=== PATIENT | female | born 1945 | race Caucasian/White ===

== ENCOUNTER 2016-10-18 12:56 | Outpatient (CLI) | payer MEDICARE, OTHER ==
[~2016-10-18] VITALS: Ht 147.3 cm; Wt 67.8 kg
[2016-10-18] MEDS ORDERED: SPIR25TA3 PO (13:11)
[2016-10-18] MEDS ORDERED: SIMV40TA4 PO (13:11)
[2016-10-18] MEDS ORDERED: GABA-486 PO (13:11)
[2016-10-18] MEDS ORDERED: PANT40TA3 PO (13:11)
[2016-10-18] MEDS ORDERED: DILT240C87 PO (13:11)
[2016-10-18] MEDS ORDERED: ASPI-586 PO (13:15)
[2016-10-18 13:21] VITALS: BP 141/71
[2016-10-18 13:55] LABS: BASOPHILS % (AUTO) 1 % (0-10); EOSINOPHILS # (AUTO) 0.2 10^3/uL (0.0-0.3); EOSINOPHILS % (AUTO) 2 % (0-10); LYMPHOCYTES # (AUTO) 1.6 X 10^3 (1.0-4.0); LYMPHOCYTES % (AUTO) 18 % (12-44); MEAN CORPUSCULAR HEMOGLOBIN 29 PG (25-34); MEAN CORPUSCULAR HGB CONC 34 G/DL (32-36); MEAN CORPUSCULAR VOLUME 85 FL (80-99); MEAN PLATELET VOLUME 9.7 FL (7.4-10.4); MONOCYTES # (AUTO) 0.8 X 10^3 (0.0-1.0); MONOCYTES % (AUTO) 9 % (0-12); NEUTROPHILS % (AUTO) 70 % (42-75); PLATELET COUNT 367 10^3/uL (130-400); RED CELL DISTRIBUTION WIDTH 12.6 % (10.0-14.5); WHITE BLOOD COUNT 8.5 10^3/uL (4.3-11.0)
[2016-10-18 14:23] LABS: ANION GAP 14 MMOL/L (5-14); BLOOD UREA NITROGEN 13 MG/DL (7-18); BUN/CREATININE RATIO 17; CALCIUM 10.1 MG/DL (8.5-10.1); CARBON DIOXIDE 21 MMOL/L (21-32); CHLORIDE 100 MMOL/L (98-107); CREATININE SERUM 0.76 MG/DL (0.60-1.30); GFR ESTIMATED > 60; GLUCOSE 85 MG/DL (70-105); POTASSIUM 4.2 MMOL/L (3.6-5.0); SODIUM 135 MMOL/L (135-145)
== END 2016-10-18 15:32 | disposition home or self-care (01) ==
LOC: PREOP 12:56
PROVIDERS: ATTEND Otolaryngology Otolaryngology/Facial Plastic Surgery
DX: Z01.812 Encounter for preprocedural laboratory examination (principal); Z11.2 Encounter for screening for other bacterial diseases; J34.9 Unspecified disorder of nose and nasal sinuses
CPT/HCPCS: 36415; 80048; 85025; 87081; 93005

== ENCOUNTER 2016-11-22 05:36 | Outpatient (CLI) | payer MEDICARE, OTHER ==
[~2016-11-22] VITALS: Ht 147.3 cm; Wt 67.8 kg
[~2016-11-22 05:36] MED LIST: ASPI-586 PO; DILT240C87 PO; GABA-486 PO; PANT40TA3 PO; SIMV40TA4 PO; SPIR25TA3 PO
--- OUTSIDE RECORDS SUMMARY | 2016-11-22 05:40 | XMS REPORT | Continuity of Care Document ---
Author Author [facility] Organization [facility] Address Unknown Phone Unavailable Support Name Relationship Address Phone SEVERO ELDRIDGE MD Caregiver [address]ait [address], [address] [place] [address] ESTER CLAY Next Of Kin [address] [place] [address] Insurance Providers Payer Name Policy Number Subscriber Name Relationship [employer] Medicare [id number] Lucille Clay 18 Self / Same As Patient Comm Crossover Enter Ins Name [id number] Lucille Clay 18 Self / Same As Patient Advance Directives Directive Response Recorded Date/Time Advance Directives Yes 10/18/16 1:06pm Health Care Power of Gear Shaper Set Up Operator Yes 10/18/16 1:06pm Resuscitation Status Full Code 10/18/16 1:06pm Problems No problem information available. Medications Current Home Medications Medication Dose Units Route Directions Days/Qty Instructions Start Date Diltiazem Hcl 240 Mg 240 Mg Oral Daily 10/18/16 Spironolactone 25 Mg 25 Mg Oral Daily 10/18/16 Simvastatin 40 Mg 40 Mg Oral Daily 10/18/16 Gabapentin 100 Mg 100 Mg Oral Daily 10/18/16 Pantoprazole Sodium 40 Mg 40 Mg Oral Daily 10/18/16 Aspirin 81 Mg 81 Mg Oral Daily 10/18/16 Social History Social History Problem Response Recorded Date/Time Alcohol Use Denies Use 10/18/2016 1:06pm Recreational Drug Use No 10/18/2016 1:06pm Recent Foreign Travel No 10/18/2016 1:05pm Recent Infectious Disease Exposure No 10/18/2016 1:05pm Sexually Transmitted Disease No 10/18/2016 1:06pm HIV/AIDS No 10/18/2016 1:06pm Smoking Status Former Smoker 10/18/2016 1:06pm Recent Hopitalizations No 10/18/2016 1:06pm Sexually Transmitted Disease No 10/18/2016 1:06pm Query Response Start Date Stop Date Smoking Status Former Smoker Hospital Discharge Instructions No hospital discharge instructions. Plan of Care Discharge Date 10/18/16 3:32pm Prescriptions See Medication Section Functional Status No functional status results. Allergies, Adverse Reactions, Alerts Allergen Type Severity Reaction Status Last Updated azithromycin ([id number]) Allergy Severe SEVERE GI UPSET/HOSPITALIZATION Active 10/18/16 Immunizations No immunization records. Vital Signs Acute Vital Signs Vital Response Date/Time Pulse Rate (adult) 75 bpm (60 - 90) 10/18/2016 1:21pm Respiratory Rate 16 bpm (12 - 24) 10/18/2016 1:21pm O2 Sat by Pulse Oximetry 97 % (88 - 100) 10/18/2016 1:21pm Blood Pressure 141/71 mm Hg 10/18/2016 1:21pm Blood Pressure Mean 94 mm Hg 10/18/2016 1:21pm Pain Numeric Pain Scale 0-No Pain 10/18/2016 1:21pm Height (Feet) 4 feet 10/18/2016 1:00pm Height (Inches) 10.00 inches 10/18/2016 1:00pm Height (Calculated Centimeters) 147.535696 cm 10/18/2016 1:00pm Weight (Pounds) 149 pounds 10/18/2016 1:00pm Weight (Ounces) 6.0 oz 10/18/2016 1:00pm Weight (Calculated Grams) 76117.36 gm 10/18/2016 1:00pm Weight (Calculated Kilograms) 67.535072 kilograms 10/18/2016 1:00pm Calculated BMI 31.2 10/18/2016 1:00pm Results Laboratory Results Test Name Result Units Flags Reference Collection Date/Time Result Date/ Time Comments White Blood Count 8.5 10^3/uL 4.3-11.0 10/18/2016 1:40pm 10/18/2016 1: 55pm Red Blood Count 5.00 10^6/uL 4.35-5.85 10/18/2016 1:40pm 10/18/2016 1: 55pm Hemoglobin 14.5 G/DL 11.5-16.0 10/18/2016 1:40pm 10/18/2016 1:55pm Hematocrit 43 % 35-52 10/18/2016 1:40pm 10/18/2016 1:55pm Mean Corpuscular Volume 85 FL 80-99 10/18/2016 1:40pm 10/18/2016 1: 55pm Mean Corpuscular Hemoglobin 29 PG 25-34 10/18/2016 1:40pm 10/18/2016 1: 55pm Mean Corpuscular Hemoglobin Concent 34 G/DL 32-36 10/18/2016 1:40pm 12/2016 1:55pm Red Cell Distribution Width 12.6 % 10.0-14.5 10/18/2016 1:40pm 2016 1:55pm Platelet Count 367 10^3/uL 130-400 10/18/2016 1:40pm 10/18/2016 1:55pm Mean Platelet Volume 9.7 FL 7.4-10.4 10/18/2016 1:40pm 10/18/2016 1: 55pm Neutrophils (%) (Auto) 70 % 42-75 10/18/2016 1:40pm 10/18/2016 1:55pm Lymphocytes (%) (Auto) 18 % 12-44 10/18/2016 1:40pm 10/18/2016 1:55pm Monocytes (%) (Auto) 9 % 0-12 10/18/2016 1:40pm 10/18/2016 1:55pm Eosinophils (%) (Auto) 2 % 0-10 10/18/2016 1:40pm 10/18/2016 1:55pm Basophils (%) (Auto) 1 % 0-10 10/18/2016 1:40pm 10/18/2016 1:55pm Neutrophils # (Auto) 6.0 X 10^3 1.8-7.8 10/18/2016 1:40pm 10/18/2016 1: 55pm Lymphocytes # (Auto) 1.6 X 10^3 1.0-4.0 10/18/2016 1:40pm 10/18/2016 1: 55pm Monocytes # (Auto) 0.8 X 10^3 0.0-1.0 10/18/2016 1:40pm 10/18/2016 1: 55pm Eosinophils # (Auto) 0.2 10^3/uL 0.0-0.3 10/18/2016 1:40pm 10/18/2016 1 :55pm Basophils # (Auto) 0.0 10^3/uL 0.0-0.1 10/18/2016 1:40pm 10/18/2016 1: 55pm Sodium Level 135 MMOL/L 135-145 10/18/2016 1:45pm 10/18/2016 2:25pm Potassium Level 4.2 MMOL/L 3.6-5.0 10/18/2016 1:45pm 10/18/2016 2:25pm Chloride Level 100 MMOL/L 98-107 10/18/2016 1:45pm 10/18/2016 2:25pm Carbon Dioxide Level 21 MMOL/L 21-32 10/18/2016 1:45pm 10/18/2016 2: 25pm Anion Gap 14 MMOL/L 5-14 10/18/2016 1:45pm 10/18/2016 2:25pm Blood Urea Nitrogen 13 MG/DL 7-18 10/18/2016 1:45pm 10/18/2016 2:25pm Creatinine 0.76 MG/DL 0.60-1.30 10/18/2016 1:45pm 10/18/2016 2:25pm BUN/Creatinine Ratio 17 10/18/2016 1:45pm 10/18/2016 2:25pm Estimat Glomerular Filtration Rate > 60 10/18/2016 1:45pm 2016 2:25pm GFR INTERPRETIVE DATA UNITS FOR ESTIMATED GFR (eGFR): mL/min/1.73 M2 REFERENCE RANGE FOR ESTIMATED GFR (eGFR) eGFR NORMAL eGFR >60 MODERATELY DECREASED eGFR 30-59 SEVERLY DECREASED eGFR 15-29 KIDNEY FAILURE <15 (OR DIALYSIS) Glucose Level 85 MG/DL 70-105 10/18/2016 1:45pm 10/18/2016 2:25pm Calcium Level 10.1 MG/DL 8.5-10.1 10/18/2016 1:45pm 10/18/2016 2:25pm Procedures Procedure Status Date Provider(s) Tracing only of electrocardiogram Active 10/18/16 SEVERO ELDRIDGE MD Encounters Encounter Location Arrival/Admit Date Discharge/Depart Date Attending Provider Departed Clinic [facility] 10/18/16 12:56pm 10/18/16 3: 32pm SEVERO ELDRIDGE MD
== END 2016-11-22 10:45 ==
LOC: PREOP 05:36
PROVIDERS: ATTEND Otolaryngology Otolaryngology/Facial Plastic Surgery
DX: Z01.818 Encounter for other preprocedural examination (principal); J34.89 Other specified disorders of nose and nasal sinuses

== ENCOUNTER 2016-11-25 08:41 | Day surgery (SDC) | payer MEDICARE, OTHER ==
[~2016-11-25] VITALS: Ht 147.3 cm; Wt 67.8 kg
--- OUTSIDE RECORDS SUMMARY | 2016-11-25 08:44 | XMS REPORT | Continuity of Care Document ---
Author Author [facility] Organization [facility] Address Unknown Phone Unavailable Support Name Relationship Address Phone SEVERO ELDRIDGE MD Caregiver Cait [address], [address] [place] [address] ESTER CLAY Next Of Kin [address] [place] [address] Insurance Providers Payer Name Policy Number Subscriber Name Relationship Wps Medicare [id number] Lucille Clay 18 Self / Same As Patient Comm Crossover Enter Ins Name [id number] Lucille Clay 19 Self / Same As Patient Advance Directives Directive Response Recorded Date/Time Advance Directives Yes 10/18/16 1:06pm Health Care Power of Oracle Specialist Yes 10/18/16 1:06pm Resuscitation Status Full Code [...] Type Severity Reaction Status Last Updated azithromycin ([id number]) Allergy Severe SEVERE GI UPSET/HOSPITALIZATION Active 10/18/16 [...] 10.00 inches 10/18/2016 1:00pm Height (Calculated Centimeters) 147.519632 cm 10/18/2016 1:00pm Weight (Pounds) 149 pounds 10/18/2016 1:00pm Weight (Ounces) 6.0 oz 10/18/2016 1:00pm Weight (Calculated Grams) 08604.36 gm 10/18/2016 1:00pm Weight (Calculated Kilograms) 67.474993 kilograms 10/18/2016 1:00pm Calculated BMI 31.2 10/18/2016 [...] Discharge/Depart Date Attending Provider Departed Clinic [facility] 10/18/16 12:56pm 10/18/16 3: 32pm SEVERO ELDRIDGE MD
--- OUTSIDE RECORDS SUMMARY | 2016-11-25 08:45 | XMS REPORT | Continuity of Care Document ---
Author Author [facility] Organization [facility] Address Unknown Phone Unavailable Support Name Relationship Address Phone SEVERO ELDRIDGE MD Caregiver Cait [address], [address] [place] [address] ESTER CLAY Next Of Kin [address] [place] [address] Insurance Providers Payer Name Policy Number Subscriber Name Relationship Wps Medicare [id number] Lucille Clay 18 Self / Same As Patient Comm Crossover Enter Ins Name [id number] Lucille Clay 19 Self / Same As Patient Advance Directives Directive Response Recorded Date/Time Advance Directives Yes 10/18/16 1:06pm Health Care Power of Edge Finisher Yes 10/18/16 1:06pm Resuscitation Status Full Code [...] Type Severity Reaction Status Last Updated azithromycin ([id number]) Allergy Severe SEVERE GI UPSET/HOSPITALIZATION Active 10/18/16 [...] 10.00 inches 10/18/2016 1:00pm Height (Calculated Centimeters) 147.566720 cm 10/18/2016 1:00pm Weight (Pounds) 149 pounds 10/18/2016 1:00pm Weight (Ounces) 6.0 oz 10/18/2016 1:00pm Weight (Calculated Grams) 17962.36 gm 10/18/2016 1:00pm Weight (Calculated Kilograms) 67.762028 kilograms 10/18/2016 1:00pm Calculated BMI 31.2 10/18/2016 [...] Discharge/Depart Date Attending Provider Departed Clinic [facility] 10/18/16 12:56pm 10/18/16 3: 32pm SEVERO ELDRIDGE MD
[2016-11-25] MEDS ORDERED: FAMOTIDINE 20MG/2ML IV (PEPCID) IV ONE (09:30)
[2016-11-25] MEDS: LACTATED RINGERS 1,000 ML IV PRN ×2 (09:33→11:45)
[2016-11-25 10:09] VITALS: BP 173/75
[2016-11-25] MEDS ORDERED: LIDOCAINE PF 2% 10 ML (XYLOCAINE) AMP ONE (10:12)
[2016-11-25] MEDS ORDERED: proPOfol 200 MG/20 ML (DIPRIVAN) VIAL IV ONE (10:12)
[2016-11-25] MEDS ORDERED: ONDANSETRON 4 MG/2 ML (SDV) Z0FRAN ONE (10:13)
[2016-11-25] MEDS ORDERED: MIDAZOLAM 2 MG/2 ML (VERSED) VIAL ONE (10:13)
[2016-11-25] MEDS ORDERED: DEXAMETHASONE PF 10 MG/ML (DECADRON) VIAL ONE (10:13)
[2016-11-25] MEDS ORDERED: fentaNYL INJECTION 100 MCG/2 ML AMP ONE (10:13)
[2016-11-25] MEDS ORDERED: MUPIROCIN 2% OINT 22 GM (BACTROBAN) TUBE ONE (10:54)
[2016-11-25] MEDS ORDERED: LIDOCAINE/EPI 1%-1:100,000 (XYLOCAINE) 20ML ONE (10:54)
--- NOTE | 2016-11-25 11:36 | Progress Note-Pre Operative ---
Pre-Operative Progress Note H&P Reviewed The H&P was reviewed, patient examined and no changes noted. Date H&P Reviewed: Nov 25, 2016 Time H&P Reviewed: 10:00 Pre-Operative Diagnosis: Right Nasal Dorsum Lesion SEVERO ELDRIDGE MD Nov 25, 2016 11:36 am
[2016-11-25] MEDS ORDERED: BSS 15 ML ONE (11:40)
[2016-11-25] MEDS ORDERED: LACTATED RINGERS 1,000 ML IV ONE ×2 (12:14)
[2016-11-25] MEDS ORDERED: SEVOFLURANE (ULTANE) 15 ML INHAL SOLN ONE (12:14)
--- NOTE | 2016-11-25 12:24 | Progress Note-Post Operative ---
Post-Operative Progess Note Pre-Operative Diagnosis Right Nasal Dorsum Lesion Post-Operative Diagnosis basal cell with clear margins Post-Op Procedure Note Date of Procedure: Nov 25, 2016 Name of Procedure: Excision of 1.6 by 1.5cm basal cell right nasal dorsum-reconstruction with full thickness skin graft-donor site left neck Anesthesia Type gen lma Estimated blood loss (mL): minimal Specimen(s) collected right nasal dorsum basal cell with clear margins SEVERO ELDRIDGE MD Nov 25, 2016 12:24 pm
[2016-11-25] MEDS ORDERED: HYDROcodone/APAP 5 MG/325 MG (LORTAB) TAB PO PRN (12:30)
[2016-11-25] MEDS ORDERED: morphine INJ 10 MG/ML 1ML (SYR OR VIAL) IVP PRN (12:30)
[2016-11-25] MEDS ORDERED: MEPERIDINE (DEMEROL) INJ 50 MG/ML IVP PRN (12:30)
[2016-11-25] MEDS ORDERED: ONDANSETRON 4 MG/2 ML (SDV) Z0FRAN IVP PRN (12:30)
[2016-11-25] MEDS ORDERED: HYDROmorphone (DILAUDID) 2 MG/ML VIAL IVP PRN (12:30)
[2016-11-25] MEDS ORDERED: ACETAMINOPHEN 325 MG TABLET/CAPLET (TYLENOL) PO PRN (12:30)
[2016-11-25 13:30] VITALS: BP 134/62
[2016-11-25 14:00] VITALS: BP 127/61
[2016-11-25] MEDS ORDERED: CEPH-507 PO (14:22)
[2016-11-25] MEDS ORDERED: HYDR-3812 PO (14:22)
[2016-11-25 14:30] VITALS: BP 128/63
[2016-11-25 14:50] VITALS: BP 128/63
== END 2016-11-25 14:50 | disposition home or self-care (01) ==
LOC: SDC 08:41
PROVIDERS: ATTEND Otolaryngology Otolaryngology/Facial Plastic Surgery
DX: C44.311 Basal cell carcinoma of skin of nose (principal)
CPT/HCPCS: 87081; 88305; 88331